=== PATIENT | male | born 1975 | race Two or more races ===

== ENCOUNTER 2019-08-25 17:32 | Emergency (ER) | payer SELFPAY ==
[~2019-08-25] VITALS: Ht 165.1 cm; Wt 72.6 kg
[2019-08-25 17:42] VITALS: BP 136/91
[2019-08-25 18:52] LABS: Albumin 3.6 g/dL (3.4-5.0); Anion Gap 3 (5-15); BUN/Creatinine Ratio 14.9; Blood Urea Nitrogen 11 mg/dL (7-18); Calcium 8.3 mg/dL (8.5-10.1); Carbon Dioxide 32 mmol/L (21-32); Chloride 107 mmol/L (98-107); GFR African American 148 mL/min; GFR Non-African American 123 mL/min; Glucose 89 mg/dL (74-106); Potassium 3.9 mmol/L (3.5-5.1); Sodium 142 mmol/L (136-145)
[2019-08-25 18:57] LABS: Alanine Aminotransferase 59 U/L (16-61); Alkaline Phosphatase 116 U/L (45-117); Aspartate Aminotransferase 46 U/L (15-37); Bilirubin, Total 0.3 mg/dL (0.2-1.0); Total Protein 7.4 g/dL (6.4-8.2)
[2019-08-25 19:28] LABS: Basophils # (auto) 0 uL; Basophils % (auto) 0.5 % (0.0-2.0); Eosinophils # (auto) 0.1 uL; Eosinophils % (auto) 1.8 % (0.0-7.0); Hematocrit 41.1 % (41.0-53.0); Hemoglobin 14.1 g/dL (13.5-17.5); Lymphocytes # (auto) 2.8 uL; Lymphocytes % (auto) 37.3 % (10.0-50.0); Mean Corpuscular Hemoglobin 32.4 pg (28.0-32.0); Mean Corpuscular Hgb Conc. 34.2 g/dL (32.0-36.0); Mean Corpuscular Volume 94.7 fL (80.0-100.0); Monocytes # (auto) 0.6 uL; Neutrophils # (auto) 3.9 uL; Neutrophils % (auto) 52.4 % (37.0-80.0); Nucleated Red Blood Cells % 0.1 %; Platelet Count (auto) 268 10^3/uL (140-450); Red Blood Cells 4.35 10^6/uL (4.5-5.90); Red Cell Distribution Width 13.1 % (11.8-14.3); White Blood Cell 7.4 10^3/uL (4.4-10.8)
== END 2019-08-25 22:37 | disposition left against medical advice (07) ==
LOC: ER 17:40
DX: R07.89 Other chest pain (principal); M25.561 Pain in right knee; Z53.21 Procedure and treatment not carried out due to patient leaving prior to being seen by health care provider
CPT/HCPCS: 36415; 71046; 73562; 80053; 84484; 85025